=== PATIENT | male | born 1935 | race Caucasian/White ===

== ENCOUNTER → 2016-05-17 | Outpatient (REF) | payer MEDICARE ==
[2016-05-17 15:55] LABS: BASO % 0.3 % (0.0-1.0); EOS # 0.2 K/mm3 (0.0-0.50); EOS % 2.6 % (0.0-3.0); LARGE UNSTAINED CELL # 0.3 K/mm3 (0.0-0.4); LARGE UNSTAINED CELL % 3.8 % (0.0-4.0); LYMPH # 1.2 K/mm3 (1.5-4.5); LYMPH % 18.4 % (24.0-44.0); MEAN CORPUSCULAR HEMOGLOBIN 27.7 pg (27.0-33.0); MEAN CORPUSCULAR HGB CONC 32.6 g/dl (32.0-36.5); MEAN CORPUSCULAR VOLUME 84.7 fl (80.0-96.0); MONO # 0.7 K/mm3 (0.0-0.8); MONO % 10.1 % (0.0-5.0); NEUTROPHILS # 4.2 K/mm3 (1.8-7.7); NEUTROPHILS % 64.7 % (36.0-66.0); PLATELET COUNT, AUTOMATED 198 k/mm3 (150-450); RED CELL DISTRIBUTION WIDTH 13.4 % (11.5-14.5); WHITE BLOOD COUNT 6.4 K/mm3 (4.0-10.0)
[2016-05-17 16:20] LABS: URIC ACID 4.7 MG/DL (3.5-7.2)
[2016-05-17 16:54] LABS: ERYTHROCYTE SEDIMENTATION RATE 7 mm/hr (0-20)
== END ==
LOC: M LABDRAW1 15:40
PROVIDERS: ATTEND Orthopaedic Surgery
DX: M25.541 Pain in joints of right hand (principal)